=== PATIENT | male | born 1990 | race Caucasian/White ===

== ENCOUNTER 2016-06-13 08:19 | Emergency (ER) | payer OTHER, SELFPAY ==
[~2016-06-13] VITALS: Ht 177.8 cm; Wt 63.5 kg
[~2016-06-13 08:19] MED LIST: [UNRECOGNIZED DRUG - REMARK]
[2016-06-13 08:39] VITALS: BP 123/77
[2016-06-13] MEDS ORDERED: FLOM5CAP PO (08:43)
[2016-06-13] MEDS ORDERED: ZOFR4TAB3 PO (08:53)
[2016-06-13] MEDS ORDERED: ONDANSETRON 4 MG ORAL DISINTEGRATING TAB (S0181) PO ONE (09:00)
== END 2016-06-13 09:12 | disposition home or self-care (01) ==
LOC: M ED 09:00
DX: A08.4 Viral intestinal infection, unspecified (principal); Z79.899 Other long term (current) drug therapy; Z88.0 Allergy status to penicillin; F17.210 Nicotine dependence, cigarettes, uncomplicated

== ENCOUNTER 2016-08-26 10:03 | Emergency (ER) | payer SELFPAY ==
[~2016-08-26] VITALS: Ht 177.8 cm; Wt 70.3 kg
[~2016-08-26 10:03] MED LIST changes: +FLOM5CAP PO; +ZOFR4TAB3 PO
[2016-08-26 10:04] VITALS: BP 131/74
[2016-08-26] MEDS ORDERED: ONDANSETRON 4 MG ORAL DISINTEGRATING TAB (S0181) PO ONE (10:45)
[2016-08-26] MEDS ORDERED: ZOFR4TAB3 PO (11:21)
== END 2016-08-26 11:39 | disposition home or self-care (01) ==
LOC: M ED 10:29
DX: R11.2 Nausea with vomiting, unspecified (principal); R19.7 Diarrhea, unspecified; F17.210 Nicotine dependence, cigarettes, uncomplicated; Z87.442 Personal history of urinary calculi; Z88.0 Allergy status to penicillin

== ENCOUNTER 2017-03-28 11:32 | Emergency (ER) | payer OTHER, SELFPAY ==
[~2017-03-28] VITALS: Ht 175.3 cm; Wt 70.9 kg
[2017-03-28 11:32] VITALS: BP 135/81
[2017-03-28] MEDS ORDERED: IBUP-1022 PO (12:09)
[2017-03-28] MEDS ORDERED: OXYC1TAB23 PO (12:09)
[2017-03-28] MEDS ORDERED: CLIN150C14 PO (12:09)
== END 2017-03-28 12:18 | disposition home or self-care (01) ==
LOC: M ED 11:32
DX: K04.7 Periapical abscess without sinus (principal); K02.9 Dental caries, unspecified; S02.5XXA Fracture of tooth (traumatic), initial encounter for closed fracture; Z72.0 Tobacco use; X58.XXXA Exposure to other specified factors, initial encounter; Y92.89 Other specified places as the place of occurrence of the external cause; Y93.89 Activity, other specified; Y99.9 Unspecified external cause status

== ENCOUNTER 2017-04-03 18:01 | Emergency (ER) | payer BC, SELFPAY ==
[~2017-04-03] VITALS: Ht 175.3 cm; Wt 70.0 kg
[~2017-04-03 18:01] MED LIST changes: +CLIN150C14 PO; +IBUP-1022 PO; +OXYC1TAB23 PO
[2017-04-03] MEDS ORDERED: IBUP80TA PO (20:29)
[2017-04-03] MEDS ORDERED: NORCO, ANEXSIA 5/325MG TABLET (HYDROcodone/ACETAMINOPHEN) PO ONE (20:30)
[2017-04-03] MEDS ORDERED: NORCO 5/325MG TABLET (BULK FOR ED) PO ONE (20:30)
[2017-04-03 20:35] VITALS: BP 148/66
== END 2017-04-03 20:39 | disposition home or self-care (01) ==
LOC: M ED 18:01
DX: K02.9 Dental caries, unspecified (principal); Z72.0 Tobacco use

== ENCOUNTER 2017-08-06 18:26 | Emergency (ER) | payer OTHER, BC ==
[2017-08-06 19:01] LABS: HEMATOCRIT 42.5 % (42.0-52.0); MEAN CORPUSCULAR HEMOGLOBIN 31.4 pg (27.0-33.0); MEAN CORPUSCULAR HGB CONC 35.3 g/dl (32.0-36.5); MEAN CORPUSCULAR VOLUME 89.1 fl (80.0-96.0); PLATELET COUNT, AUTOMATED 230 10^3/uL (150-450); RED BLOOD COUNT 4.77 10^6/uL (4.30-6.10); WHITE BLOOD COUNT 6.9 10^3/uL (4.0-10.0)
[2017-08-06 19:18] LABS: D-DIMER QUANT < 270.0 ng/ml (<500)
[2017-08-06 19:21] LABS: ANION GAP 5 MEQ/L (8-16); BLOOD UREA NITROGEN 19 MG/DL (7-18); CALCIUM LEVEL 8.5 MG/DL (8.5-10.1); CARBON DIOXIDE LEVEL 27 MEQ/L (21-32); CHLORIDE LEVEL 109 MEQ/L (98-107); CREATININE FOR GFR 0.85 MG/DL (0.70-1.30); GLOMERULAR FILTRATION RATE > 60.0 (>60); GLUCOSE, FASTING 90 MG/DL (70-100); POTASSIUM SERUM 3.7 MEQ/L (3.5-5.1); SODIUM LEVEL 141 MEQ/L (136-145)
== END 2017-08-06 19:58 | disposition home or self-care (01) ==
LOC: M ED 18:26
DX: M94.0 Chondrocostal junction syndrome [Tietze] (principal); F17.200 Nicotine dependence, unspecified, uncomplicated; Z88.8 Allergy status to other drugs, medicaments and biological substances; Z88.0 Allergy status to penicillin
CPT/HCPCS: 71046

== ENCOUNTER 2019-05-01 08:47 | Emergency (ER) | payer OTHER, SELFPAY ==
[~2019-05-01] VITALS: Ht 175.3 cm; Wt 70.5 kg
[~2019-05-01 08:47] MED LIST changes: +FLOM0.4C39 PO; -FLOM5CAP PO; +IBUP80TA PO; +ZOFR4TAB14 PO; -ZOFR4TAB3 PO
[2019-05-01 12:55] VITALS: BP 137/75
--- NOTE | 2019-05-01 20:58 | ECGEPIP ---
[facility] - ED Test Date: 2019-05-01 Pat Name: ORLIN CRUZ Department: Room: - Gender: Male Quilt Maker: ralph : 1990 Requested By: KRYSTYNA Rust PA-C Order Number: [id number] Reading MD: Justin Quigley Measurements Intervals [place] Rate: 53 P: -4 AK: 134 QRS: 67 QRSD: 90 T: 52 QT: 400 QTc: 376 Interpretive Statements SINUS BRADYCARDIA BENIGN EARLY REPOLARIZATION SIMILAR TO 02/06/15 Electronically Signed on 05-01-2019 20:58:38 EST by Justin Quigley
== END 2019-05-01 13:00 | disposition home or self-care (01) ==
LOC: M ED 08:47
DX: Z77.098 Contact with and (suspected) exposure to other hazardous, chiefly nonmedicinal, chemicals (principal); R00.1 Bradycardia, unspecified; J02.9 Acute pharyngitis, unspecified; F17.210 Nicotine dependence, cigarettes, uncomplicated; Z88.0 Allergy status to penicillin; Z88.1 Allergy status to other antibiotic agents

== ENCOUNTER 2019-12-15 20:36 | Emergency (ER) | payer OTHER, SELFPAY ==
[~2019-12-15] VITALS: Ht 180.3 cm; Wt 75.9 kg
[2019-12-15] MEDS ORDERED: dexameTHASONE 20MG/5ML VIAL (J1100 PER 1MG) IV ONE (21:30)
[2019-12-15] MEDS ORDERED: ISOVUE-370 76% 100ML VIAL As Ordered ONE (21:45)
--- NOTE | 2019-12-15 22:02 | REPVR ---
PROCEDURE INFORMATION: Exam: CT Neck With Contrast Exam date and time: 12/15/2019 9:47 PM Age: 29 years old Clinical indication: Mass, lump, or swelling in neck; Additional info: R tonsillar swelling with diff swallowing R/O abscess TECHNIQUE: Imaging protocol: Computed tomography images of the neck with intravenous contrast. Radiation optimization: All CT scans at this facility use at least one of these dose optimization techniques: automated exposure control; mA and/or kV adjustment per patient size (includes targeted exams where dose is matched to clinical indication); or iterative reconstruction. Contrast material: ISOVUE 370; Contrast volume: 75 ml; Contrast route: INTRAVENOUS (IV); COMPARISON: No relevant prior studies available. FINDINGS: Nasopharynx: Unremarkable. Oropharynx: There is prominence of the right palatine tonsil. Irregular low density within the right palatine tonsil measuring 1 cm AP 1.5 cm transverse by 1 cm cc. Hypopharynx: Unremarkable. Larynx: Unremarkable. Normal epiglottis. Retropharyngeal space: Unremarkable. Submandibular/Parotid glands: Normal. Glands are normal in size. Thyroid: Normal. No enlarged or calcified nodules. Lymph nodes: Mild right cervical lymphadenopathy, likely reactive. Trachea: Visualized trachea is unremarkable. Lungs: Unremarkable as visualized. Bones/joints: Unremarkable. No acute fracture. Soft tissues: Unremarkable. No significant soft tissue swelling. Other findings: There are adjacent inflammatory changes. IMPRESSION: Findings compatible with right peritonsillar abscess measuring up to 1.5 cm. Electronically signed by: Bjorn Castillo On 12/15/2019 22:02:06 PM
[2019-12-15 22:03] LABS: BASO % 0.3 % (0.0-1.0); EOS # 0.3 10^3/uL (0.0-0.5); HEMATOCRIT 45.4 % (42.0-52.0); HEMOGLOBIN 15.9 g/dl (13.5-17.5); LYMPH # 1.8 10^3/uL (1.5-5.0); LYMPH % 12.8 % (24.0-44.0); MEAN CORPUSCULAR HEMOGLOBIN 31.4 pg (27.0-33.0); MEAN CORPUSCULAR VOLUME 89.5 fl (80.0-96.0); MONO # 0.8 10^3/uL (0.0-0.8); NEUTROPHILS % 78.5 % (36.0-66.0); PLATELET COUNT, AUTOMATED 251 10^3/uL (150-450); RED BLOOD COUNT 5.07 10^6/uL (4.30-6.10); WHITE BLOOD COUNT 13.9 10^3/uL (4.0-10.0)
[2019-12-15] MEDS ORDERED: CLINDAMYCIN 600 MG in IV 1 EA IV ONE (22:15)
[2019-12-15 23:36] VITALS: BP 141/89
== END 2019-12-15 23:39 | disposition short-term general hospital (02) ==
LOC: M ED 20:36
DX: J36 Peritonsillar abscess (principal); B95.3 Streptococcus pneumoniae as the cause of diseases classified elsewhere; F17.210 Nicotine dependence, cigarettes, uncomplicated; Z88.0 Allergy status to penicillin; Z88.1 Allergy status to other antibiotic agents
CPT/HCPCS: 70491; 80047; 85025; 87880; 96365; 96375; 99284; J1100; Q9967

== ENCOUNTER 2019-12-19 19:13 | Emergency (ER) | payer OTHER ==
[~2019-12-19] VITALS: Ht 175.3 cm; Wt 76.2 kg
[2019-12-19] MEDS ORDERED: METH4TAB8 PO (19:20)
[2019-12-19] MEDS ORDERED: CLIN150C14 PO (19:20)
[2019-12-19 21:30] VITALS: BP 139/79
[2019-12-20] MEDS ORDERED: NAPR-885 PO (12:02)
[2019-12-20] MEDS ORDERED: CLEO300C2 PO (16:54)
[2019-12-20] MEDS ORDERED: MEDR4TAB PO (16:54)
== END 2019-12-19 21:58 | disposition home or self-care (01) ==
LOC: M ED 19:13
DX: Z53.20 Procedure and treatment not carried out because of patient's decision for unspecified reasons (principal); J36 Peritonsillar abscess; Z88.0 Allergy status to penicillin; Z88.1 Allergy status to other antibiotic agents

== ENCOUNTER 2019-12-20 06:44 | Inpatient (IN) | payer OTHER ==
[~2019-12-20] VITALS: Ht 175.3 cm; Wt 75.2 kg
[~2019-12-20 06:44] MED LIST changes: +METH4TAB8 PO
[2019-12-20] MEDS ORDERED: KETOROLAC 30 MG/ML 1ML VIAL IV ONE (08:15)
[2019-12-20 08:44] LABS: BASO % 0.2 % (0.0-1.0); EOS # 0.2 10^3/uL (0.0-0.5); EOS % 1.4 % (0.0-3.0); HEMATOCRIT 48.7 % (42.0-52.0); HEMOGLOBIN 16.5 g/dl (13.5-17.5); LYMPH # 2.6 10^3/uL (1.5-5.0); LYMPH % 20.7 % (24.0-44.0); MEAN CORPUSCULAR HEMOGLOBIN 30.7 pg (27.0-33.0); MEAN CORPUSCULAR HGB CONC 33.9 g/dl (32.0-36.5); MEAN CORPUSCULAR VOLUME 90.5 fl (80.0-96.0); MONO # 1.1 10^3/uL (0.0-0.8); MONO % 8.5 % (0.0-5.0); NEUTROPHILS # 8.7 10^3/uL (1.5-8.5); NEUTROPHILS % 68.5 % (36.0-66.0); PLATELET COUNT, AUTOMATED 270 10^3/uL (150-450); RED BLOOD COUNT 5.38 10^6/uL (4.30-6.10); WHITE BLOOD COUNT 12.7 10^3/uL (4.0-10.0)
[2019-12-20] MEDS ORDERED: ISOVUE-370 76% 100ML VIAL As Ordered ONE (08:52)
[2019-12-20] MEDS ORDERED: NICOTINE 7 MG/24 HR TRANSDERMAL TD SCH (09:00)
--- NOTE | 2019-12-20 10:12 | REPVR ---
PROCEDURE INFORMATION: Exam: CT Neck With Contrast Exam date and time: 12/20/2019 8:07 AM Age: 29 years old Clinical indication: Other: Swelling; Additional info: H/o peritonsillar abscess, undrained, worsening sx's TECHNIQUE: Imaging protocol: Computed tomography images of the neck with intravenous contrast. Radiation optimization: All CT scans at this facility use at least one of these dose optimization techniques: automated exposure control; mA and/or kV adjustment per patient size (includes targeted exams where dose is matched to clinical indication); or iterative reconstruction. Contrast material: ISOVUE 370; Contrast volume: 75 ml; Contrast route: INTRAVENOUS (IV); COMPARISON: CT Neck with contrast 12/15/2019 9:43 PM FINDINGS: Nasopharynx: Unremarkable. Oropharynx: There is an enlarging 2.7 x 2.7 x 1.3 cm right peritonsillar abscess that bulges into the oropharynx. There is only minimal airway compromise. Hypopharynx: Unremarkable. Larynx: Unremarkable. Normal epiglottis. Retropharyngeal space: Unremarkable. Submandibular/Parotid glands: Normal. Glands are normal in size. Thyroid: Normal. No enlarged or calcified nodules. Lymph nodes: There are scattered enlarged cervical lymph nodes. Trachea: Visualized trachea is unremarkable. Lungs: Unremarkable as visualized. Bones/joints: Unremarkable. No acute fracture. Soft tissues: Unremarkable. No significant soft tissue swelling. IMPRESSION: 1. There is an enlarging 2.7 x 2.7 x 1.3 cm right peritonsillar abscess that bulges into the oropharynx. There is only minimal airway compromise. If drainage of the abscess is not performed at this time, close clinical and imaging followup is necessary. 2. There are scattered enlarged cervical lymph nodes. Electronically signed by: Tad Smith On 12/20/2019 10:12:03 AM
[2019-12-20] MEDS ORDERED: NS 1,000 ML IV ONE ×2 (11:00→12:00)
[2019-12-20] MEDS ORDERED: D5W/0.45% SODIUM CHLORIDE 1,000 ML IV SCH (11:06)
[2019-12-20] MEDS ORDERED: CLINDAMYCIN 900 MG in IV 1 EA IV SCH (11:15)
[2019-12-20] MEDS: dexameTHASONE 20MG/5ML VIAL (J1100 PER 1MG) IV SCH ×2 (11:47→18:11)
[2019-12-20] MEDS ORDERED: MORPHINE 10 MG/ML 1ML VIAL (J2270) IV ONE (12:00)
[2019-12-20] MEDS ORDERED: NAPR-885 PO (12:02)
[2019-12-20] MEDS ORDERED: DEXTROSE 50% 50 ML SYRINGE IV PRN (12:45)
[2019-12-20] MEDS ORDERED: GLUCAGON INJ 1MG VIAL SC PRN (12:45)
[2019-12-20] MEDS ORDERED: MORPHINE 4 MG/ML 1ML VIAL/SYRINGE (J2270) IV PRN (12:45)
[2019-12-20] MEDS ORDERED: GLUCOSE 4GM CHEW TABLET PO PRN (12:45)
--- NOTE | 2019-12-20 12:45 | HPEPDOC ---
[facility] Medical History & Physical Date of Admission Dec 20, 2019 Date of Service: Dec 20, 2019 History and Physical CHIEF COMPLAINT: sore throat since Tuesday HISTORY OF PRESENT ILLNESS: 29 y/o male with recreational drug use , marijuana, was in his usual state of health until Tuesday when he noted sore throat, dysphagia to solids, odynophagia without chills or fevers, seen in the ER and given clindamycin and steroids with worsening symptoms prompting him to return to the ER for admission. ENT, Dr. Hidalgo, recommended incision and drainage in the OR. Pt has been kept NPO, covid test ordered, and ivfluids. Denies fever, chills, n/v/abd pain, sob, cough, wt gain/loss, chest pain pressure dizziness, dysuria,urgency, frequency, flank pain, ue or le weakness, paresthesias, polyphagia, polydipsia, and has no other medical complaints. PAST MEDICAL HISTORY: none PAST SURGICAL HISTORY: none SOCIAL HISTORY: 1/2 ppd tobacco use, social ETOH, works in maintenance, uses marijuana FAMILY HISTORY: unknown. pt does not speak with his mother or father ALLERGIES: Please see below. REVIEW OF SYSTEMS:12 point systems review negative aside from positive findings on HPI HOME MEDICATIONS: Please see below. PHYSICAL EXAMINATION: VITAL SIGNS: Temperature 98.7 pulse 76 , respiratory rate 16 , blood pressure 133/75 , pulse oximetry 96% on room air. GENERAL APPEARANCE: AAOx3 no respiratory distress. no conversational dyspnea. able to complete full sentences. no accessory respiratory muscle use. anicteric. no jaundice, icterus, scleral injection. of HEENT: PERRLA EOMI right-sided peritonsillar abscess pharyngeal erythema. (+) cervical LAD no thryomegaly moist mucus membranes CARDIOVASCULAR: RRR S1S2 no m/r/g LUNGS: AEBE CTAB no wheezing, rales, or rhonchi. no adventitious breath sounds ABDOMEN: (+)BS x 4 quadrants soft NT ND no HSM no abdominal bruits MUSCULOSKELETAL: no rash or joint effusions b/l UE or LE EXTREMITIES: no C/C/E NEUROLOGICAL: no focal deficits motor 5/5/ x 4 extremities. no sensory changes. AA0x3. PSYCHIATRIC: normal affect. LABORATORY DATA: See below. MICROBIOLOGY: Please see below. ASSESSMENT: 29 y/o male with recreational drug use , marijuana, was in his usual state of health until Tuesday when he noted sore throat, dysphagia to solids, odynophagia without chills or fevers, seen in the ER and given clindamycin and steroids with worsening symptoms prompting him to return to the ER for admission. ENT, Dr. Hidalgo, recommended incision and drainage in the OR. Pt has been kept NPO, covid test ordered, and ivfluids. Denies fever, chills, n/v/abd pain, sob, cough, wt gain/loss, chest pain pressure dizziness, dysuria,urgency, frequency, flank pain, ue or le weakness, paresthesias, polyphagia, polydipsia, and has no other medical complaints. 1. Peritonsillar Abscess 2. Recreational Drug use with marijuana 3. Active Tobacco abuse 4. Medical Clearance PLAN: -pt is medically optimized to proceed to surgery. -NPO, IVFluids, prn pain meds, IV clinda, IV decadron, hypoglycemic protocol -tobacco cessation counselling. nicotine patch. -compression stockings for DVT prophylaxis. Vital Signs Vital Signs Date Time Temp Pulse Resp B/P (MAP) Pulse Ox O2 Delivery O2 Flow Rate FiO2 12/20/19 08:38 12/20/19 06:45 98.7 76 16 96 Room Air Laboratory Data Labs 24H Laboratory Tests 2 12/20/19 08:25: Immature Granulocyte % (Auto) 0.7, Neutrophils (%) (Auto) 68.5H, Lymphocytes (%) (Auto) 20.7L, Monocytes (%) (Auto) 8.5H, Eosinophils (%) (Auto) 1.4, Basophils (%) (Auto) 0.2, Neutrophils # (Auto) 8.7H, Lymphocytes # (Auto) 2.6, Monocytes # (Auto) 1.1H, Eosinophils # (Auto) 0.2, Basophils # (Auto) 0.0, Nucleated Red Blood Cells % (auto) 0.0 12/20/19 11:54: CBC/BMP Laboratory Tests 12/20/19 08:25 Microbiology Microbiology 12/20/19 Blood Culture, Received Pending 12/20/19 Blood Culture, Received Pending Home Medications Scheduled Clindamycin Hcl (Clindamycin HCl) 150 Mg Capsule, 300 MG PO TID FILLED 12/16/19 FOR 10 DAYS Methylprednisolone (Methylprednisolone) 4 Mg Tablet, 4 MG PO ASDIRECTED MEDROL TAPER DOSE FILLED 12/16/19 FOR 6 DAYS Scheduled PRN Naproxen (Naproxen) 500 Mg Tablet, 500 MG PO Q12H PRN for PAIN Allergies Coded Allergies: Penicillins (Verified Allergy, Unknown, 05/01/19) tetracycline (Verified Allergy, Unknown, 05/01/19) A-FIB/CHADSVASC A-FIB History Current/History of A-Fib/PAF?: No Current PO Anticoag Therapy: No Age/Risk Factor Scoring CHADSVASC: CHADSVASC Response (Comments) Value Age Risk Factor Age < 65 years old 0 Gender Risk Factor Male 0 Hx of CHF No 0 Hx of HTN No 0 Hx of Stroke/TIA/or VTE No 0 Hx of Diabetes No 0 Hx of Vascular Disease No 0 Total 0 Treatment Treatment ordered: NONE Reason Anticoagulant not given: Not indicated/[id number] MIGUELITO STRAUSS MD Dec 20, 2019 12:38
[2019-12-20] MEDS ORDERED: LIDOCAINE W/EPINEPHRINE 1% 20ML VIAL As Ordered ONE (13:41)
[2019-12-20] MEDS ORDERED: OXYMETAZOLINE 0.05% NASAL SPRAY (AFRIN) As Ordered ONE (14:00)
[2019-12-20] MEDS ORDERED: CLINDAMYCIN INJ 900MG/6ML VIAL As Ordered ONE (14:01)
[2019-12-20 14:02] LABS: PARTIAL THROMBOPLASTIN TIME 27.5 SECONDS (25.0-38.4)
[2019-12-20] MEDS ORDERED: propofoL 200 MG/20 ML VIAL As Ordered ONE (14:08)
[2019-12-20] MEDS ORDERED: ROCURONIUM BROMIDE 50 MG/5 ML VIAL As Ordered ONE (14:08)
[2019-12-20] MEDS ORDERED: LIDOCAINE 2% 100MG/5ML SDV (FOR ANES.) As Ordered ONE (14:08)
[2019-12-20 14:09] LABS: INR 1.03; PROTHROMBIN TIME 13.7 SECONDS (11.8-14.0)
[2019-12-20] MEDS ORDERED: fentaNYL 100 MCG/2 ML INJECTION (J3010) As Ordered ONE (14:09)
[2019-12-20] MEDS ORDERED: MIDAZOLAM INJ 2MG/2ML VIAL (J2250 PER 1MG) As Ordered ONE (14:09)
[2019-12-20] MEDS ORDERED: ONDANSETRON 4MG/2ML VIAL As Ordered ONE (14:10)
[2019-12-20] MEDS ORDERED: dexameTHASONE 4 MG/ML 1ML VIAL (J1100 PER 1MG) As Ordered ONE (14:10)
[2019-12-20 14:15] LABS: ALBUMIN 3.7 GM/DL (3.2-5.2); ALT/SGPT 22 U/L (12-78); BILIRUBIN,TOTAL 0.8 MG/DL (0.2-1.0); BLOOD UREA NITROGEN 19 MG/DL (7-18); CALCIUM LEVEL 8.9 MG/DL (8.5-10.1); CARBON DIOXIDE LEVEL 27 MEQ/L (21-32); CHLORIDE LEVEL 107 MEQ/L (98-107); CREATININE FOR GFR 0.72 MG/DL (0.70-1.30); GLOMERULAR FILTRATION RATE > 60.0 (>60); GLUCOSE, FASTING 90 MG/DL (70-100); POTASSIUM SERUM 4.1 MEQ/L (3.5-5.1); SODIUM LEVEL 138 MEQ/L (136-145)
[2019-12-20] MEDS ORDERED: ACETAMINOPHEN 1000MG 100ML IV BTL (OFIRMEV) (J0131 PER 10MG) As Ordered ONE (14:59)
[2019-12-20] MEDS ORDERED: SUGAMMADEX SODIUM 500 MG/5 ML VIAL (BRIDION) As Ordered ONE (15:02)
[2019-12-20 15:04] LABS: C REACTIVE PROTEIN QUANTITATIV 0.84 MG/DL (0.00-0.30)
[2019-12-20] MEDS ORDERED: ONDANSETRON 4MG/2ML VIAL IV PRN (16:15)
[2019-12-20] MEDS ORDERED: LR 1,000 ML IV SCH (16:15)
[2019-12-20] MEDS ORDERED: fentaNYL 100 MCG/2 ML INJECTION (J3010) IV PRN (16:15)
[2019-12-20] MEDS ORDERED: METOCLOPRAMIDE INJ 10MG/2ML VIAL (J2765 PER 1) IV PRN (16:15)
[2019-12-20] MEDS ORDERED: PERCOCET 5MG/325MG TAB As Ordered ONE (16:26)
[2019-12-20] MEDS: PERCOCET 5MG/325MG TAB PO PRN ×3 (16:27→17:12)
[2019-12-20 16:35] VITALS: BP 132/90
[2019-12-20] MEDS ORDERED: CLEO300C2 PO (16:54)
[2019-12-20] MEDS ORDERED: MEDR4TAB PO (16:54)
[2019-12-20 17:00] VITALS: BP 125/69
[2019-12-20 17:30] VITALS: BP 120/66
[2019-12-20 18:30] VITALS: BP 128/70
[2019-12-20 19:30] VITALS: BP 145/82
--- NOTE | 2019-12-20 20:28 | DS.PDOC ---
Discharge Summary General Date of Admission Dec 20, 2019 at 11:07 Date of Discharge 12/20/2019 @1999 Attending Physician: Marsha Mares MD Specialist/Consultants Involve: NATHAN HIDALGO MD Discharge Summary PROCEDURES PERFORMED DURING STAY: abscess drainage with Dr. Hidalgo ADMITTING DIAGNOSES: 1.Peritonsillar Abscess. 2. Recreational Drug use with marijuana 3. Active Tobacco abuse DISCHARGE DIAGNOSES: 1. Peritonsillar Abscess. 2. Recreational Drug use with marijuana 3. Active Tobacco abuse COMPLICATIONS/CHIEF COMPLAINT: Peritonsillar Abscess. HISTORY OF PRESENT ILLNESS: 29 y/o male with recreational drug use , marijuana, was in his usual state of health until Tuesday when he noted sore throat, dysphagia to solids, odynophagia without chills or fevers, seen in the ER and given clindamycin and steroids with worsening symptoms prompting him to return to the ER for admission. ENT, Dr. Hidalgo, recommended incision and drainage in the OR. Pt has been kept NPO, covid test ordered, and ivfluids. Denies fever, chills, n/v/abd pain, sob, cough, wt gain/loss, chest pain pressure dizziness, dysuria,urgency, frequency, flank pain, ue or le weakness, paresthesias, polyphagia, polydipsia, and has no other medical complaints. HOSPITAL COURSE: Patient's surgery was went as planned and about 10cc of pus was drained. He tolerated oral intake well and requested to leave AMA. I spoke with ENT who restated the risks of leaving including airway compromise from swelling in his throat and . These risks were passed on to and explained to the patient who verbalized understanding of the risks associated and wished to leave regardless. We discussed that should he begin to feel worse to please return to the hospital and to follow up with Dr. Hidalgo's office in the next 10 days with JORGE Rodarte and to complete a 10 day course of Augmentin. Patient again verbalized understanding and agreement of the plan moving forward. DISCHARGE MEDICATIONS: Please see below. ALLERGIES: Please see below. PHYSICAL EXAMINATION ON DISCHARGE: VITAL SIGNS: Please see below. GENERAL: Well appearing male in sitting comfortably in bed in no acute distress NEUROLOGICAL EXAMINATION: A&Ox4. PSYCHIATRIC EXAMINATION: Normal mood and affect LABORATORY DATA: Please see below. IMAGIN12/20/[address]: IMPRESSION: 1. There is an enlarging 2.7 x 2.7 x 1.3 cm right peritonsillar abscess that bulges into the oropharynx. There is only minimal airway compromise. If drainage of the abscess is not performed at this time, close clinical and imaging followup is necessary. 2. There are scattered enlarged cervical lymph nodes. PROGNOSIS: guarded ACTIVITY: [As tolerated]. DIET: As tolerated DISCHARGE PLAN: AMA DISCHARGE INSTRUCTIONS: 1. Please follow up with ENT in the next 7-10 days and complete course of abx. DISCHARGE CONDITION: [Stable]. TIME SPENT ON DISCHARGE: 33 minutes. Vital Signs/I&Os Vital Signs Date Time Temp Pulse Resp B/P (MAP) Pulse Ox O2 Delivery O2 Flow Rate FiO2 12/20/19 18:30 98.1 58 18 128/70 (89) 98 Room Air Laboratory Data Labs 24H Laboratory Tests 2 12/20/19 08:25: Immature Granulocyte % (Auto) 0.7, Neutrophils (%) (Auto) 68.5H, Lymphocytes (%) (Auto) 20.7L, Monocytes (%) (Auto) 8.5H, Eosinophils (%) (Auto) 1.4, Basophils (%) (Auto) 0.2, Neutrophils # (Auto) 8.7H, Lymphocytes # (Auto) 2.6, Monocytes # (Auto) 1.1H, Eosinophils # (Auto) 0.2, Basophils # (Auto) 0.0, Nucleated Red Blood Cells % (auto) 0.0 12/20/19 08:38: POC Glucose (Misc Panel) 92, POC Sodium (Misc Panel) 139, POC Potassium (Misc Panel) 4.0, POC Chloride (Misc Panel) 101, POC Total CO2 (Misc Panel) 27.0, POC Blood Urea Nitrogen (Misc Panel 20, POC Ionized Calcium (Misc Panel) 4.8, POC Creatinine (Misc Panel) 0.7, POC Hematocrit (Misc Panel) 50.0 12/20/19 11:54: Coronavirus (COVID-19)(PCR) NEGATIVE 12/20/19 13:30: Erythrocyte Sedimentation Rate 7, Prothrombin Time 13.7, Prothromb Time International Ratio 1.03, Activated Partial Thromboplast Time 27.5, Anion Gap 4L, Glomerular Filtration Rate > 60.0, Calcium Level 8.9, Total Bilirubin 0.8, Aspartate Amino Transf (AST/SGOT) 14, Alanine Aminotransferase (ALT/SGPT) 22, Alkaline Phosphatase 103, C-Reactive Protein, Quantitative 0.84H, Total Protein 7.0, Albumin 3.7, Albumin/Globulin Ratio 1.1 CBC/BMP Laboratory Tests 12/20/19 08:25 12/20/19 13:30 Microbiology Microbiology 12/20/19 Anaerobic Culture, Received Pending 12/20/19 Gram Stain, Received Pending 12/20/19 Abscess Culture, Received Pending 12/20/19 Blood Culture, Received Pending 12/20/19 Blood Culture, Received Pending Discharge Medications Scheduled Clindamycin Hcl (Clindamycin HCl) 150 Mg Capsule, 300 MG PO TID, (Reported) FILLED 12/16/19 FOR 10 DAYS Clindamycin Hcl (Cleocin HCl) 300 Mg Capsule, 1 CAP PO TID Methylprednisolone (Methylprednisolone) 4 Mg Tablet, 4 MG PO ASDIRECTED, (Reported) MEDROL TAPER DOSE FILLED 12/16/19 FOR 6 DAYS Methylprednisolone (Medrol) 4 Mg Tablet, 4 MG PO ASDIRECTED Scheduled PRN Naproxen (Naproxen) 500 Mg Tablet, 500 MG PO Q12H PRN for PAIN, (Reported) Allergies Coded Allergies: Penicillins (Verified Allergy, Unknown, 05/01/19) tetracycline (Verified Allergy, Unknown, 05/01/19) GME ATTESTATION GME ATTESTATION My faculty preceptor for this patient encounter was physically present during the encounter and was fully available. All aspects of the patient interview, examination, medical decision making process, and medical care plan development were reviewed and approved by the faculty preceptor. The faculty preceptor is aware and concurs with the plan as stated in the body of this note and will attest to such by his/her cosignature. ATTENDING NOTE I, Marsha Mares, have independently examined this patient and performed my own physical exam, as well as reviewed the documentation and edited where necessary. I have discussed in detail with the resident / student the findings and plan of treatment as documented by the resident / student and edited their note. I agree with their findings and treatment plan and have edited their documentation. I will continue to follow the patient during this hospital stay. AKIRA STAHL DO Dec 20, 2019 20:28 Marsha Mares MD Dec 24, 2019 00:57
== END 2019-12-20 20:20 | disposition home or self-care (01) | DRG 97 ==
LOC: M ED 06:44 → M ED INP 11:07 → M PCU 16:33
PROVIDERS: ADMIT General Practice; ATTEND General Practice
PROC: 0C9P0ZZ Drainage of Tonsils, Open Approach (ICD-10-PCS; principal; 2019-12-20 14:15)
DX: J36 Peritonsillar abscess (principal); F17.200 Nicotine dependence, unspecified, uncomplicated; F12.90 Cannabis use, unspecified, uncomplicated; Z79.899 Other long term (current) drug therapy; Z88.0 Allergy status to penicillin; Z88.8 Allergy status to other drugs, medicaments and biological substances

== ENCOUNTER → 2020-05-07 | Outpatient (REF) | payer OTHER ==
[~2020-05-07] MED LIST changes: +CLEO300C2 PO; -CLIN150C14 PO; +CLIN150C15 PO; +MEDR4TAB PO; +NAPR-885 PO
[2020-05-07 17:44] LABS: ALT/SGPT 30 U/L (12-78); BILIRUBIN,TOTAL 0.7 MG/DL (0.2-1.0); BLOOD UREA NITROGEN 22 MG/DL (7-18); CALCIUM LEVEL 9.9 MG/DL (8.5-10.1); CARBON DIOXIDE LEVEL 29 MEQ/L (21-32); CHLORIDE LEVEL 101 MEQ/L (98-107); CHOLESTEROL LEVEL 188 MG/DL (<200); CHOLESTEROL RISK RATIO 4.372 (<5); GLOMERULAR FILTRATION RATE > 60.0 (>60); GLUCOSE, FASTING 89 MG/DL (70-100); HDL CHOLESTEROL 43 MG/DL (>40); LDL CHOLESTEROL 131 MG/DL (<100); NON-HDL-C 145 MG/DL; POTASSIUM SERUM 4.5 MEQ/L (3.5-5.1); SODIUM LEVEL 139 MEQ/L (136-145); TOTAL PROTEIN 7.4 GM/DL (6.4-8.2); TRIGLYCERIDES LEVEL 69 MG/DL (<150)
[2020-05-07 17:45] LABS: ALBUMIN 4.6 GM/DL (3.2-5.2); THYROID STIMULATING HORMONE 0.931 uIU/ML (0.358-3.740)
== END ==
LOC: M LAB REF 16:20
PROVIDERS: ATTEND Family Medicine Addiction Medicine
DX: Z00.00 Encounter for general adult medical examination without abnormal findings (principal)

== ENCOUNTER → 2021-01-22 | Outpatient (REF) | payer OTHER ==
[~2021-01-22] MED LIST changes: -CLIN150C15 PO; +CLIN150C17 PO
== END ==
LOC: M LAB REF 15:40
PROVIDERS: ATTEND Physician Assistant
DX: J06.9 Acute upper respiratory infection, unspecified (principal); Z20.828 Contact with and (suspected) exposure to other viral communicable diseases

== ENCOUNTER → 2021-11-12 | Outpatient (REF) | payer OTHER ==
[2021-11-12 12:48] LABS: APPEARANCE, URINE CLEAR (CLEAR); BACTERIA, URINE AUTO NEGATIVE (NEGATIVE); BILIRUBIN, URINE AUTO NEGATIVE (NEGATIVE); BLOOD, URINE BLOOD NEGATIVE (NEGATIVE); COLOR, URINE YELLOW (YELLOW); GLUCOSE, URINE (UA) AUTO NEGATIVE (NEGATIVE); KETONE, URINE AUTO NEGATIVE (NEGATIVE); LEUKOCYTE ESTERASE, URINE AUTO NEGATIVE (NEGATIVE); NITRITE, URINE AUTO NEGATIVE (NEGATIVE); PROTEIN, URINE AUTO NEGATIVE (NEGATIVE); RBC, URINE AUTO 1 /HPF (0-3); SPECIFIC GRAVITY URINE AUTO 1.019 (1.002-1.035); SQUAMOUS EPITHELIAL CELL UR AU 0 /HPF (0-6); UROBILINOGEN, URINE AUTO 0.2 mg/dL (0.0-2.0); WBC, URINE AUTO 8 /HPF (0-3)
[2021-11-12 18:12] LABS: GC DNA AMPLIFICATION NEGATIVE (NEGATIVE)
== END ==
LOC: M LAB REF 11:54
PROVIDERS: ATTEND Physician Assistant Medical
DX: N39.0 Urinary tract infection, site not specified (principal)

== ENCOUNTER → 2022-06-11 | Outpatient (REF) | payer OTHER | LOC: M LAB REF 14:09 | PROVIDERS: ATTEND Surgery | DX: I78.1 Nevus, non-neoplastic (principal) ==

== ENCOUNTER → 2022-07-05 | Outpatient (REF) | payer OTHER | LOC: M LAB REF 17:40 | PROVIDERS: ATTEND Surgery | DX: B07.9 Viral wart, unspecified (principal) ==

== ENCOUNTER → 2022-09-20 | Outpatient (CLI) | payer OTHER ==
[2022-09-20 11:29] LABS: BLOOD UREA NITROGEN 15 MG/DL (9-23); CARBON DIOXIDE LEVEL 30 MMOL/L (20-31); CHLORIDE LEVEL 104 MMOL/L (98-107); CREATININE FOR GFR 0.91 MG/DL (0.70-1.30); GLOMERULAR FILTRATION RATE > 60.0 (>60); GLUCOSE, FASTING 107 MG/DL (60-100); POTASSIUM SERUM 4.3 MMOL/L (3.5-5.1); SODIUM LEVEL 139 MMOL/L (136-145)
[2022-09-21 23:09] LABS: PSA TOTAL 0.7 ng/mL (0.0-4.0)
== END ==
LOC: M LAB 10:21
PROVIDERS: ATTEND Urology
DX: R31.0 Gross hematuria (principal)

== ENCOUNTER → 2022-09-22 | Outpatient (CLI) | payer OTHER ==
[~2022-09-22] MED LIST changes: +ISOVUE-370 76% 100ML VIAL ONE
== END ==
LOC: M PLAIMG 10:02
PROVIDERS: ATTEND Urology
DX: R31.0 Gross hematuria (principal)

== ENCOUNTER 2022-11-03 17:27 | Emergency (ER) | payer OTHER ==
[~2022-11-03] VITALS: Ht 175.3 cm; Wt 76.4 kg
[~2022-11-03 17:27] MED LIST changes: -ISOVUE-370 76% 100ML VIAL ONE
[2022-11-03 17:28] VITALS: BP 144/93; TEMP 96.6; O2SAT 99
== END 2022-11-03 21:34 | disposition left against medical advice (07) ==
LOC: M ED 17:27
DX: J06.9 Acute upper respiratory infection, unspecified (principal); Z53.21 Procedure and treatment not carried out due to patient leaving prior to being seen by health care provider

== ENCOUNTER → 2023-04-14 | Outpatient (REF) | payer OTHER ==
[2023-04-14 18:20] LABS: HEMOGLOBIN A1c 5.2 % (4.0-6.0)
[2023-04-14 18:30] LABS: CHOLESTEROL RISK RATIO 4.31 (<5); HDL CHOLESTEROL 42.2 MG/DL (>40); LDL CHOLESTEROL 116.8 MG/DL (<100); NON-HDL-C 139.8 MG/DL
[2023-04-14 18:33] LABS: FREE T4 1.17 NG/DL (0.89-1.76); THYROID STIMULATING HORMONE 1.056 uIU/ML (0.55-4.78)
== END ==
LOC: M LAB REF 16:53
PROVIDERS: ATTEND Family Medicine Addiction Medicine
DX: R73.03 Prediabetes (principal)